=== PATIENT | female | born 1980 | race African-American/Black ===

== ENCOUNTER → 2019-07-30 | Outpatient (CLI) | payer MEDICARE, OTHER ==
[~2019-07-30] MED LIST: ABILIFY; ADIPEX-P37.5 MG PO; ALEVE PO; ALPRAZOLAM; AMPICILLIN 250 MG PO; ATIVAN 0.50.5 MG/TAB PO; BENADRYL25 M2 PO; CELEXA 20MG20 MG/TAB PO; CEPHALEXIN; ERYTHRO333 MG PO; ERYTHROMYCIN400 MG PO; GEODON60 MG PO; GEODON80 MG PO; HCTZ 25MG TAB25 MG PO; IRON FERROUS S325 MG PO; LASIX 20MG TABL20 MG PO; LATUDA20 MG PO; LATUDA40 MG PO; MAXZIDE; MELATONIN5 M1 SL; METFORMIN500 MG PO; NEXIUM40 MG PO; NORCO 325 MG-7.1 TAB PO; PERCOCET 325 MG1 TA2 PO; PHENTERMINE15 MG PO; PRENATAL VITAMI1 TAB PO; PRILOSEC 20MG20 MG PO; PRILOSEC10 MG PO; PRISTIQ50 MG; TOPAMAX 100MG100 MG PO; TRIAMTERENE/HCT1 TAB PO; VISTARIL 2525 MG/CAP PO; XANAX1 MG PO; ZOLOFT 100MG100 MG PO; ZOLOFT50 MG PO; ZYPREXA ZYDIS20 MG PO; ZYPREXA7.5 MG PO; [UNRECOGNIZED DRUG - OTHER]
== END ==
LOC: MC.RAD 08:30
DX: Z12.31 Encounter for screening mammogram for malignant neoplasm of breast (principal)

== ENCOUNTER 2020-02-21 00:28 | Emergency (ER) | payer MEDICARE, OTHER ==
[~2020-02-21] VITALS: Ht 175.3 cm; Wt 100.0 kg
[2020-02-21 00:37] VITALS: BP 102/67; TEMP 97.8
[2020-02-21 02:45] LABS: BASO # 0.1 (0.0-0.2); BASO % 0.8 % (0.0-2.0); EOS # 0.1 (0.0-0.7); EOS % 2.2 % (0-4.0); GRAN # 3.9 (1.4-6.5); GRAN % 59.6 % (42.2-75.2); LYMPH # 1.9 (1.2-3.4); LYMPH % 29.2 % (20.0-51.0); MEAN CELL VOLUME 74 fl (80.0-100.0); MEAN CORPUSCULAR HGB CONC 30 g/dl (33.0-37.0); MEAN PLATELET VOLUME 10.8 fl (7.4-10.4); MONO # 0.5 (0.1-0.6); MONO % 7.9 % (1.7-9.3); PLATELET COUNT 315 K/mm3 (130-400); RED BLOOD COUNT 4.41 M/mm3 (4.10-5.30); REDCELL DISTRIBUTION WIDTH-CV 15.8 % (11.5-14.5)
[2020-02-21 02:46] LABS: HEMATOCRIT 32.4 % (37.0-47.0); HEMOGLOBIN 9.8 g/dl (12.5-16.0); MEAN CORPUSCULAR HEMOGLOBIN 22 pg (27.0-31.0)
[2020-02-21 03:02] LABS: ALBUMIN 4.1 gm/dL (3.5-5.0); BILIRUBIN,TOTAL 0.5 mg/dL (0.0-1.0); CALCIUM 9.7 mg/dL (8.4-10.2); CREATININE, serum 0.83 (0.52-1.25); POTASSIUM 3.2 mmol/L (3.4-5.0); TOTAL PROTEIN 7.9 gm/dL (6.4-8.2)
[2020-02-21 04:07] VITALS: PULSE 86
== END 2020-02-21 04:07 | disposition home or self-care (01) ==
LOC: COL.ER 00:28
PROVIDERS: Nurse Practitioner
DX: F32.9 Major depressive disorder, single episode, unspecified (principal); F41.9 Anxiety disorder, unspecified; I10 Essential (primary) hypertension; K21.9 Gastro-esophageal reflux disease without esophagitis; Z90.49 Acquired absence of other specified parts of digestive tract

== ENCOUNTER 2020-04-28 01:29 | Emergency (ER) | payer MEDICARE, OTHER ==
[~2020-04-28] VITALS: Ht 175.3 cm; Wt 94.5 kg
[2020-04-28 01:31] VITALS: TEMP 98.3
[2020-04-28 02:08] LABS: BASO # 0.1 (0.0-0.2); BASO % 0.6 % (0.0-2.0); EOS # 0.2 (0.0-0.7); EOS % 2.2 % (0-4.0); GRAN # 5.7 (1.4-6.5); GRAN % 66.6 % (42.2-75.2); LYMPH % 22.7 % (20.0-51.0); MEAN CELL VOLUME 74 fl (80.0-100.0); MEAN CORPUSCULAR HGB CONC 30 g/dl (33.0-37.0); MEAN PLATELET VOLUME 10.2 fl (7.4-10.4); MONO # 0.7 (0.1-0.6); MONO % 7.8 % (1.7-9.3); PLATELET COUNT 343 K/mm3 (130-400); REDCELL DISTRIBUTION WIDTH-CV 17.4 % (11.5-14.5)
[2020-04-28 02:10] LABS: HEMATOCRIT 33.2 % (37.0-47.0); HEMOGLOBIN 9.8 g/dl (12.5-16.0); MEAN CORPUSCULAR HEMOGLOBIN 22 pg (27.0-31.0)
[2020-04-28 02:24] LABS: ALANINE AMINOTRANSFERASE 13 U/L (4-34); ALBUMIN 4.3 gm/dL (3.5-5.0); ALKALINE PHOSPHATASE 62 U/L (50-136); ANION GAP 9 mmol/L (7-16); AST,SGOT 24 U/L (15-37); BILIRUBIN,TOTAL 0.4 mg/dL (0.0-1.0); BLOOD UREA NITROGEN 6 mg/dL (7-17); CALCIUM 9.5 mg/dL (8.4-10.2); CARBON DIOXIDE 27 mmol/L (22-30); CHLORIDE 102 mmol/L (98-107); CREATININE, serum 0.92 (0.52-1.25); GLUCOSE 103 mg/dL (74-106); MAGNESIUM 1.8 mg/dL (1.6-2.3); POTASSIUM 3.7 mmol/L (3.4-5.0); SODIUM 138 mmol/L (137-145); TOTAL PROTEIN 8.1 gm/dL (6.4-8.2)
[2020-04-28 02:46] LABS: TROPONIN-I < 0.012 ng/mL (0.000-0.035)
[2020-04-28 03:05] VITALS: BP 104/75; PULSE 88
== END 2020-04-28 03:05 | disposition home or self-care (01) ==
LOC: COL.ER 01:29
PROVIDERS: Emergency Medicine
DX: R20.8 Other disturbances of skin sensation (principal); F31.9 Bipolar disorder, unspecified
CPT/HCPCS: J2060; J7030

== ENCOUNTER 2024-02-25 16:13 | Emergency (ER) | payer MEDICARE, OTHER ==
[~2024-02-25] VITALS: Ht 175.3 cm; Wt 81.8 kg
[2024-02-25 16:19] VITALS: TEMP 97.6
[2024-02-25] MEDS ORDERED: NS 1,000 ML IV ONE (16:45)
[2024-02-25 17:18] LABS: BASO # 0.1 K/mm3 (0.0-0.2); BASO % 0.3 % (0.0-2.0); EOS % 0.2 % (0.0-4.0); GRAN # 16.1 K/mm3 (1.4-6.5); GRAN % 87.5 % (42.2-75.2); LYMPH # 1.3 K/mm3 (1.2-3.4); LYMPH % 7.1 % (20.0-51.0); MEAN CELL VOLUME 75 fl (80.0-100.0); MEAN CORPUSCULAR HEMOGLOBIN 22 pg (27-31); MEAN CORPUSCULAR HGB CONC 30 g/dl (33.0-37.0); MEAN PLATELET VOLUME 11.1 fl (7.4-10.4); MONO # 0.9 K/mm3 (0.1-0.6); MONO % 4.6 % (1.7-9.3); PLATELET COUNT 278 K/mm3 (130-400); RED BLOOD COUNT 4.48 M/mm3 (4.10-5.30); REDCELL DISTRIBUTION WIDTH-CV 15.8 % (11.5-14.5)
[2024-02-25 17:27] LABS: HEMATOCRIT 33.6 % (37.0-47.0)
[2024-02-25 17:35] LABS: ALBUMIN 3.3 g/dL (3.5-5.0); BILIRUBIN,TOTAL 0.6 mg/dL (0.2-1.2); CALCIUM 8.9 mg/dL (8.4-10.2); CREATININE, serum 0.96 mg/dL (0.57-1.11); POTASSIUM 3.3 mEq/L (3.5-4.5); TOTAL PROTEIN 7.2 g/dl (6.2-8.1)
[2024-02-25 17:38] LABS: COLLECTION METHOD CLEAN CATCH
[2024-02-25 17:51] LABS: PH 5.5 (5.0-8.5); URINE APPEARANCE CLOUDY (CLEAR/HAZY); URINE BLOOD NEGATIVE (NEGATIVE); URINE COLOR YELLOW (YELLOW); URINE GLUCOSE NEGATIVE (NEGATIVE); URINE KETONE NEGATIVE (NEGATIVE); URINE NITRATE NEGATIVE (NEGATIVE); URINE PROTEIN(semi-quant) NEGATIVE (NEGATIVE)
[2024-02-25] MEDS ORDERED: Iohexol 300 - 100 ML VIAL IV ONE (18:27)
[2024-02-25] MEDS ORDERED: NS 100 ML IV ONE (18:28)
[2024-02-25] MEDS ORDERED: cefTRIAXone 1 G in Water For Injection,Sterile 10 ML IV ONE (19:00)
[2024-02-25] MEDS ORDERED: ZITHROMAX 250M250 MG PO (19:03)
[2024-02-25] MEDS ORDERED: AMOXICILLIN 50500 MG PO (19:03)
[2024-02-25] MEDS ORDERED: Azithromycin 250 MG TAB PO ONE (19:15)
[2024-02-25 19:35] VITALS: BP 107/82; PULSE 62
== END 2024-02-25 19:36 | disposition home or self-care (01) ==
LOC: COL.ER 16:13
PROVIDERS: Physician Assistant
DX: I95.9 Hypotension, unspecified (principal); J18.9 Pneumonia, unspecified organism
CPT/HCPCS: J0696; J7030; Q9967